=== PATIENT | female | born 1985 | race Caucasian/White ===

== ENCOUNTER 2017-08-28 10:13 | Outpatient (CLI) | payer MEDICAID | END 2017-08-28 11:30 | disposition home or self-care (01) | LOC: OBT 10:13 → L-D 10:13 → OBT 11:30 | DX: O40.3XX0 Polyhydramnios, third trimester, not applicable or unspecified (principal); Z3A.35 35 weeks gestation of pregnancy | CPT/HCPCS: 76818 ==

== ENCOUNTER 2017-09-23 04:05 | Inpatient (IN) | payer MEDICAID ==
[2017-09-23] MEDS ORDERED: LIDOCAINE 1% (MPF) 30 ML INJ INJ (05:00)
[2017-09-23] MEDS ORDERED: MISOPROSTOL 200 MCG TAB PR ×2 (05:00→17:30)
[2017-09-23] MEDS ORDERED: CARBOPROST 250 MCG INJ IM ×2 (05:00→17:30)
[2017-09-23] MEDS ORDERED: LACTATED RINGER'S 1,000 ML IV (05:00)
[2017-09-23] MEDS ORDERED: METHYLERGONOVINE 0.2 MG INJ IM (05:00)
[2017-09-23] MEDS ORDERED: OXYTOCIN 30 UNITS/LR 500 ML IV ×2 (05:00→17:30)
[2017-09-23] MEDS: LACTATED RINGER'S 1,000 ML IV ×2 (05:29→12:51)
[2017-09-23 06:03] LABS: ADD MAN DIFF? NO
[2017-09-23 06:11] LABS: BASOPHILS % 0.3 % (0.0-2.0); EOSINOPHILS # 0.2 10^3/ul (0.0-0.5); EOSINOPHILS % 2.5 % (0.0-7.0); HEMATOCRIT 33.7 % (37.0-47.0); HEMOGLOBIN 11.6 g/dl (12.0-16.0); LYMPHOCYTES # 1.6 10^3/ul (0.8-2.9); LYMPHOCYTES % 20.5 % (15.0-51.0); MEAN CORPUSCULAR HEMOGLOBIN 30.9 pg (29.0-33.0); MEAN CORPUSCULAR HGB CONC 34.4 g/dl (32.0-37.0); MEAN CORPUSCULAR VOLUME 89.9 fl (82.0-101.0); MEAN PLATELET VOLUME 12.3 fl (7.4-10.4); MONOCYTE # 0.6 10^3/ul (0.3-0.9); MONOCYTES % 7.4 % (0.0-11.0); NEUTROPHIL # 5.5 10^3/ul (1.6-7.5); NEUTROPHILS % 68.5 % (39.0-77.0); PLATELET COUNT 104 10^3/UL (140-415); RED BLOOD COUNT 3.75 10^6/ul (4.20-5.40); RED CELL DISTRIBUTION WIDTH 13.6 % (11.5-14.5)
[2017-09-23 06:35] LABS: INR 0.87; PROTIME 11.9 Sec (11.9-14.9); PT RATIO 0.9
[2017-09-23 06:36] LABS: PARTIAL THROMBOPLASTIN TIME 26.1 Sec (25.0-35.0)
[2017-09-23 07:06] LABS: HEPATITIS B SURFACE ANTIGEN NEGATIVE (NEGATIVE)
[2017-09-23] MEDS: MISOPROSTOL 25 MCG CAPSULE PO ×2 (10:24→14:24)
[2017-09-23] MEDS ORDERED: MINERAL OIL LIGHT 10 ML VIAL TOP (10:30)
[2017-09-23] MEDS: BUTORPHANOL 2 MG INJ IV (15:06)
[2017-09-23] MEDS ORDERED: AMPICILLIN 2 GM/NS (PMX) 100 ML IVPB (15:30)
[2017-09-23] MEDS: OXYTOCIN 30 UNITS/LR 500 ML IV ×3 (16:37→21:01)
[2017-09-23] MEDS: IBUPROFEN 600 MG TAB PO ×2 (16:51→23:33)
[2017-09-23] MEDS ORDERED: DIPHENHYDRAMINE 25 MG CAP PO (17:30)
[2017-09-23] MEDS ORDERED: ZOLPIDEM 5 MG TAB PO (17:30)
[2017-09-23] MEDS ORDERED: NACL 0.9% 3 ML SYG IV (17:30)
[2017-09-23] MEDS ORDERED: ONDANSETRON 4 MG INJ IV (17:30)
[2017-09-23] MEDS ORDERED: WITCH HAZEL/GLYCERIN PAD PR (17:30)
[2017-09-23 18:06] LABS: RAPID PLASMA REAGIN NONREACTIVE (NR)
[2017-09-23 18:29] LABS: HEMATOCRIT 33.6 % (37.0-47.0); HEMOGLOBIN 11.5 g/dl (12.0-16.0)
[2017-09-23] MEDS: HYDROCODONE/APAP (5/325) TAB PO (21:00)
[2017-09-23] MEDS: SENNA/DOCUSATE NA (8.6MG/50MG) TAB PO ×3 (21:00→21:04)
[2017-09-24] MEDS: IBUPROFEN 600 MG TAB PO ×5 (05:42→23:32)
[2017-09-24] MEDS: SENNA/DOCUSATE NA (8.6MG/50MG) TAB PO ×2 (09:26→21:25)
[2017-09-24 13:43] LABS: ADD MAN DIFF? NO
[2017-09-24 13:47] LABS: BASOPHILS % 0.4 % (0.0-2.0); EOSINOPHILS # 0.1 10^3/ul (0.0-0.5); EOSINOPHILS % 1.5 % (0.0-7.0); HEMATOCRIT 29.6 % (37.0-47.0); HEMOGLOBIN 10.3 g/dl (12.0-16.0); LYMPHOCYTES # 1.4 10^3/ul (0.8-2.9); LYMPHOCYTES % 17.3 % (15.0-51.0); MEAN CORPUSCULAR HEMOGLOBIN 31.6 pg (29.0-33.0); MEAN CORPUSCULAR HGB CONC 34.8 g/dl (32.0-37.0); MEAN CORPUSCULAR VOLUME 90.8 fl (82.0-101.0); MEAN PLATELET VOLUME 11.8 fl (7.4-10.4); MONOCYTE # 0.5 10^3/ul (0.3-0.9); MONOCYTES % 5.9 % (0.0-11.0); NEUTROPHIL # 6.1 10^3/ul (1.6-7.5); NEUTROPHILS % 74.2 % (39.0-77.0); PLATELET COUNT 122 10^3/UL (140-415); RED BLOOD COUNT 3.26 10^6/ul (4.20-5.40); RED CELL DISTRIBUTION WIDTH 13.9 % (11.5-14.5)
[2017-09-24 13:47] LABS: WHITE BLOOD COUNT 8.3 10^3/ul (4.8-10.8)
[2017-09-24] MEDS: LANOLIN 7 GM TUBE TOP (17:40)
[2017-09-25] MEDS: IBUPROFEN 600 MG TAB PO ×2 (05:47→12:31)
== END 2017-09-25 13:50 | disposition home or self-care (01) | DRG 775 ==
LOC: OBT 04:05 → L-D 04:05 → OBT 04:50 → L-D 04:50 → PP1 18:44
PROVIDERS: Obstetrics & Gynecology
PROC: 10E0XZZ Delivery of Products of Conception, External Approach (ICD-10-PCS; principal; 2017-09-23)
PROC: 0HQ9XZZ Repair Perineum Skin, External Approach (ICD-10-PCS; 2017-09-23)
DX: O99.214 Obesity complicating childbirth (principal); Z37.0 Single live birth; E66.9 Obesity, unspecified; Z68.35 Body mass index [BMI] 35.0-35.9, adult; Z3A.39 39 weeks gestation of pregnancy; O70.0 First degree perineal laceration during delivery
CPT/HCPCS: 36415; 76815; 82962; 85014; 85018; 85025; 85610; 85730; 86592; 86850; 86900; 86901; 87340